=== PATIENT | male | born 1955 | race Caucasian/White ===

== ENCOUNTER 2016-10-19 23:54 | Inpatient (IN) | payer OTHER ==
[~2016-10-19 23:54] MED LIST: IV FLUID CONTINUATION 1,000 ML IV ONE
[2016-10-20] MEDS ORDERED: MIDAZOLAM 2 MG/2 ML VIAL IV ONE (00:05)
[2016-10-20] MEDS ORDERED: MIDAZOLAM 2 MG/2 ML VIAL ONE (00:06)
[2016-10-20] MEDS ORDERED: LIDOCAINE 2% INJ 20 MG/ML SQ ONE (00:08)
[2016-10-20] MEDS ORDERED: METOPROLOL TARTRATE 5 MG/5 ML VIAL IVP ONE ×2 (00:13→00:14)
[2016-10-20] MEDS ORDERED: IOHEXOL 350 MG/ML 100 ML BOTTLE INJ ONE (00:26)
[2016-10-20] MEDS ORDERED: RX INFO: IV CONTRAST WAS GIVEN 1 EACH MISC MISCELLANE PRN (00:40)
[2016-10-20] MEDS ORDERED: NITROGLYCERIN SL TABS 0.4 MG TAB SUBLINGUAL PRN (00:43)
[2016-10-20] MEDS ORDERED: SODIUM CHLORIDE 0.9% 1,000 ML IV SCH (00:45)
[2016-10-20] MEDS ORDERED: LABETALOL SYRINGE 5 MG/ML ONE (00:53)
[2016-10-20] MEDS ORDERED: LABETALOL SYRINGE 5 MG/ML IV ONE (00:56)
--- NOTE | 2016-10-20 00:57 | P.PCN ---
Date of Procedure: 10/20/16 Preoperative Diagnosis: Unstable angina and possible NC Postoperative Diagnosis: Mild coronary artery disease Procedure(s) Performed: Left heart catheterization with left ventriculography Description of Procedure: HISTORY: This is a 60-year-old gentleman with history of heavy smoking and family history of ischemic heart disease who [facility] complaints of chest pain and EKG evidence of ST depression in inferior and anterolateral leads. There is sized to a mild ST elevation in the aVR and V1. Because of ongoing symptoms, patient was advised to have a cardiac catheterization for definitive diagnosis. Patient has history of alcohol intake and also smoking CONSENT:I have discussed the risks, benefits and alternative therapies for the above-mentioned procedure and for both sedation/analgesia as well as necessary blood product administration, if indicated, as they pertain to this patient. The patient has indicated understanding and acceptance of the risks and procedures discussed. PROCEDURE: Patient was brought to the lab in a fasting state. Patient was given some IV sedation. The right groin is infiltrated with lidocaine and right femoral artery was entered using Seldinger technique. A 6-Maltese catheter was left in place and selective coronary arteriography and left ventriculography was performed. Patient tolerated the procedure well. Femoral angiogram was performed. Manual compression was used for hemostasis. No immediate complications were noted and patient was transferred to [facility] in a stable condition HEMODYNAMICS: The aortic pressure is 160/90. Left ankle end-diastolic pressure is 25. There was no gradient across the aortic valve. SELECTIVE CORONARY ARTERIOGRAPHY: LEFT MAIN: Normal length and patent THE LEFT ANTERIOR DESCENDING CORONARY ARTERY: Fair caliber vessel giving rise to good-sized first diagonal branch and a small second diagonal branch. The second diagonal branch has about 30-40% stenosis. THE LEFT CIRCUMFLEX AND IS CORONARY ARTERY: This is a good caliber vessel giving rise to small OM branches and PLV branch. There is mild plaque in the midcircumflex without any significant obstructive disease THE RIGHT CORONARY ARTERY: This is a moderate caliber vessel with about 40-50% stenosis in midportion. The rest of the RCA is free of occlusive disease. It gives rise good-sized PDA and PLV branches and dominant in distribution. LEFT VENTRICULOGRAPHY: This showed normal-sized LV size and function. Left ankle end-diastolic pressure is elevated FINAL IMPRESSION: Mild diffuse coronary artery disease with about 40-50% stenosis in the midright coronary artery. No critical lesions were noted PLAN: Maximum medical therapy. Obtain d-dimer to rule out pulmonary embolism. If the d-dimer is elevated may get computed tomography scan of the chest PROGNOSIS: Fair
[2016-10-20] MEDS ORDERED: ACETAMINOPHEN TAB 325 MG TAB PO PRN (01:03)
[2016-10-20] MEDS ORDERED: ZOLPIDEM 5 MG TAB PO PRN (01:03)
--- NOTE | 2016-10-20 01:03 | P.CRDCN ---
History of Present Illness Consult date: 10/20/16 History of present illness: This is a 60-year-old gentleman with history of smoking and alcohol abuse who went to [facility] today with complaints of prolonged chest discomfort associated with a diffuse ST-T abnormalities in inferior and lateral leads. There is sized to a mild ST elevation in aVR and V1. Because of ongoing chest pains and EKG changes patient was transferred to [facility] for for further evaluation. 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 His cardiac catheterization revealed moderate plaque in mid RCA and mild disease in the diagonal and circumflex. Patient is being admitted to the hospital for further evaluation. Is going to have a d-dimer value. If the d-dimer is high patient may have computed tomography scan of the chest. We'll also follow his cardiac enzymes studies. Patient had no history of previous myocardial infarction. Most of previous chest pains. His breath had alcohol smell on admission. He was watching football game while he started having chest pain. Past Medical History Past Medical History: Hypertension Medications and Allergies Allergies Allergy/AdvReac Type Severity Reaction Status Date / Time No Known Allergies Allergy Verified 10/20/16 00:08 Physical Exam Vitals: Intake and Output 10/19/16 10/19/16 10/20/16 14:59 22:59 06:59 Intake Total 300 Balance 300 Intake: IV 300 Other: Weight 56.961 kg Patient Weight 10/20/16 06:59 Weight 56.961 kg GENERAL EXAM: Patient is alert and oriented and doesn't appear to be in any acute distress HEENT: Normocephalic. Normal reaction of pupils, equal size, normal range of extraocular motion. No erythema or exudates in the throat. NECK: No masses, no nuchal rigidity. CHEST: No chest wall deformity. LUNGS: Equal air entry with no crackles or wheeze. HEART: S1 and S2 normal with no audible mumurs or gallops. Regular rhythm, femorals equal on both sides.. ABDOMEN: No hepatosplenomegaly, normal bowel sounds, no guarding or rigidity. SKIN: No rashes CENTRAL NERVOUS SYSTEM: No focal deficits. EXTREMITIES: No cyanosis, clubbing or edema. Results Current Medications Generic Name Dose Route Start Last Admin Trade Name Freq PRN Reason Stop Dose Admin Acetaminophen/Hydrocodone Bitart 1 each 10/20/16 00:45 [place] 5-325 PO Q6HR PRN Pain Aspirin 81 mg 10/20/16 21:00 Aspirin PO HS JENNIFER Sodium Chloride 1,000 mls @ 50 mls/hr 10/20/16 00:45 Saline 0.9% IV 10/20/16 07:00 .Q20H JENNIFER Lisinopril 5 mg 10/20/16 09:00 Zestril PO DAILY JENNIFER Metoprolol Tartrate 25 mg 10/20/16 09:00 Lopressor PO BID JENNIFER Miscellaneous Information 1 each 10/20/16 00:40 Rx Info: Iv Contrast Was Given MISCELLANE 10/22/16 00:40 DAILY PRN Per Protocol Nicotine 1 patch 10/20/16 09:00 Habitrol 21mg/24hr Patch TRANSDERM DAILY JENNIFER Nitroglycerin 0.4 mg 10/20/16 00:43 Nitrostat SUBLINGUAL Q5M PRN Chest Pain Intake and Output 10/19/16 10/19/16 10/20/16 14:59 22:59 06:59 Intake Total 300 Balance 300 Intake: IV 300 Other: Weight 56.961 kg Patient Weight 10/20/16 06:59 Weight 56.961 kg EKG Interpretations (text) Sinus rhythm with diffuse ST-T abnormalities with ST depression in inferior and lateral leads and mild ST elevation in aVR and V1 Assessment and Plan (1) Unstable angina Status: Acute (2) Hypertension Status: Acute (3) Smoking Status: Acute (4) Family history of ischemic heart disease Status: Acute (5) CAD (coronary artery disease) Status: Acute Plan: Continue to monitor cardiac enzymes. D-dimer. If the d-dimer is elevated make consider doing computed tomography scan. We'll continue with beta blockers, aspirin and lipid-lowering agent along with lisinopril.
[2016-10-20 02:01] VITALS: BMI 20.9
[2016-10-20 02:22] LABS: Creatine Kinase MB 0.9 ng/mL (0.0-2.4); Troponin I 0.014 ng/mL (0.000-0.034)
[2016-10-20] MEDS: NICOTINE 21MG/24HR PATCH TRANSDERM SCH (08:17)
[2016-10-20] MEDS: LISINOPRIL 5 MG TAB PO SCH (08:18)
[2016-10-20] MEDS: METOPROLOL TARTRATE 25 MG TAB PO SCH ×2 (08:18→20:43)
[2016-10-20 08:54] LABS: Anion Gap 10 mmol/L; Blood Urea Nitrogen 14 mg/dL (9-20); Calcium 8.6 mg/dL (8.4-10.2); Carbon Dioxide 26 mmol/L (22-30); Chloride 104 mmol/L (98-107); Cholesterol 141 mg/dL (<200); Glucose 104 mg/dL (74-99); HDL Cholesterol 75 mg/dL (40-60); Non-African American GFR(MDRD) >60 (>60 ml/min/1.73 sqM); Sodium 140 mmol/L (137-145); Triglycerides 110 mg/dL (<150)
[2016-10-20 09:21] LABS: Creatine Kinase MB 0.9 ng/mL (0.0-2.4)
[2016-10-20 09:25] LABS: Troponin I 0.044 ng/mL (0.000-0.034)
--- NOTE | 2016-10-20 12:13 | PN ---
This is a 60-year-old gentleman who is admitted to hospital with chest pain was ruled in for myocardial infarction, had a cardiac catheterization by my associate, Dr. Becker, which revealed mild nonobstructive CAD that he was advised medical therapy for. The patient had an echo done. I am waiting for the results at this time. He had a left ventriculogram that showed normal size and systolic function. A D-dimer was done and that was not elevated. At the time of my evaluation this morning, he is pain free and hemodynamically stable. Denies any symptoms. On exam, comfortable at rest. VITAL SIGNS: Blood pressure is elevated at 150/85, respiratory rate is 18. There is no jugular venous distention. Chest reveals good air entry bilaterally. Heart reveals first and second heart sounds. No gallop. Extremities did not reveal any edema. Peripheral pulses are felt. Groin is free of bleeding, bruit, hematoma. ASSESSMENT: Non-ST segment elevation myocardial infarction, could be due to a plaque rupture. Will follow the echo results and continue with what we are doing. Hopefully home tomorrow.
--- NOTE | 2016-10-20 12:14 | ECHOF ---
Referral Reason:lv function MEASUREMENTS -------- HEIGHT: 165.1 cm WEIGHT: 52.6 kg BP: 160/85 RVIDd: 3.4 cm (< 3.3) IVSd: 1.4 cm (0.6 - 1.1) LVIDd: 3.6 cm (3.9 - 5.3) LVPWd: 1.4 cm (0.6 - 1.1) IVSs: 1.7 cm LVIDs: 2.7 cm LVPWs: 1.4 cm LA Diam: 3.3 cm (2.7 - 3.8) LAESV Index (A-L): 31.86 ml/m Ao Diam: 3.0 cm (2.0 - 3.7) AV Cusp: 2.0 cm (1.5 - 2.6) LA Diam: 3.6 cm (2.7 - 3.8) MV EXCURSION: 14.577 mm (> 18.000) MV EF SLOPE: 103 mm/s (70 - 150) EPSS: 0.2 cm MV E Tre: 0.78 m/s MV DecT: 126 ms MV A Tre: 0.64 m/s MV E/A Ratio: 1.23 RAP: 5.00 mmHg RVSP: 25.45 mmHg FINDINGS -------- Sinus rhythm. This was a technically good study. There is moderate concentric left ventricular hypertrophy. Overall left ventricular systolic function is normal with, an EF between 55 - 60 %. The right ventricle is mildly enlarged. LA is midly dilated 29-33ml/m2. The right atrium is normal in size. Aortic valve is trileaflet and is mildly thickened. The mitral valve leaflets are mildly thickened. Mild mitral annular calcification present. Mild tricuspid regurgitation present. Right ventricular systolic pressure is normal at < 35 mmHg. Pulmonic valve appears structurally normal. The aortic root size is normal. Normal inferior vena cava with normal inspiratory collapse consistent with estimated right atrial pressure of 5 mmHg. There is no pericardial effusion. CONCLUSIONS -------- 1. Sinus rhythm. 2. Mild mitral annular calcification present. 3. Mild tricuspid regurgitation present. 4. Right ventricular systolic pressure is normal at < 35 mmHg. 5. Pulmonic valve appears structurally normal. 6. The aortic root size is normal. 7. There is no pericardial effusion. 8. This was a technically good study. 9. There is moderate concentric left ventricular hypertrophy. 10. Overall left ventricular systolic function is normal with, an EF between 55 - 60 %. 11. The right ventricle is mildly enlarged. 12. LA is midly dilated 29-33ml/m2. 13. The right atrium is normal in size. 14. Aortic valve is trileaflet and is mildly thickened. 15. The mitral valve leaflets are mildly thickened. PROPERTY APPRAISER: Pietro Hopper RDCS
[2016-10-20] MEDS: HYDROcodone/APAP 5-325MG 1 EACH TAB PO PRN (13:56)
--- NOTE | 2016-10-20 20:23 | HP ---
DATE OF ADMISSION: CHIEF COMPLAINT: Chest pain. HISTORY OF PRESENT ILLNESS: Mr. Burton is a 60-year-old male with a known history of hypertension, uncontrolled, alcohol abuse and nicotine addiction; has smoked about one to one and a half packs per day since age 17; and also a family history of coronary artery disease and [place]. His father at age 63. He came to the hospital with complaints of chest pain. Initially he presented to [facility] with sternal chest pain that felt like somebody sitting on his chest; no associated nausea or diaphoresis. Patient does have shortness of breath. Patient was found to have T-wave depression in the lateral and inferior leads and also mild ST elevation in the aVR and V1. Patient was transferred to [facility] for further elevation by Cardiology. Patient was immediately taken for cardiac catheterization that revealed moderate plaque in the mid RCA and mild disease in the diagonal and circumflex. His D-dimer was negative and echo showed normal ejection fraction. Otherwise, patient is hemodynamically and clinically stable without any chest pain now. No fever. No chills. No recent illnesses or sick contacts at home. No recent travel. REVIEW OF SYSTEMS: CONSTITUTIONAL: No fever. No chills. RESPIRATORY: No cough or sputum production. CARDIOVASCULAR: No chest pain or shortness of breath. ABDOMEN: No nausea, vomiting or abdominal pain. GENITOURINARY: Negative. ENDOCRINE: Negative. PSYCHIATRY: Negative. SKIN: Negative. All other 14-point review of systems negative except as above. Past medical history includes hypertension and nicotine addiction. PAST SURGICAL HISTORY: None. FAMILY HISTORY: History of [place] in his father at the age of 63. SOCIAL HISTORY: Patient smokes about one to one and a half packs per day and drinks on a daily basis. Denied any drugs or IVDU. Denied any marijuana. ALLERGIES: NO KNOWN DRUG ALLERGIES. Home medications include: 1. [place] 5/325. 2. Aspirin. 3. Zestril. 4. Habitrol. 5. Nitrostat. 6. Allopurinol. 7. Amlodipine 10 mg p.o. daily. PHYSICAL EXAMINATION: [id number]-old male lying in bed comfortably. Awake, alert, oriented x3. Appears to be in no distress. VITALS: Blood pressure is 150/79. Pulse is 100, respiration 16, temperature afebrile, pulse ox 95% on room air. HEENT: Atraumatic, normocephalic. Neck is supple. No JVD. CVS EXAM: S1, S2 heard. No murmurs or gallop. LUNGS: Bilateral air entry is present. No wheezing. Prolonged expiratory phase. Non-labored breathing. ABDOMEN: Soft, nontender. Bowel sounds are present. 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 No focal deficit. EXTREMITIES: No edema. Pulses palpable bilaterally. No clubbing or cyanosis. PSYCHIATRIC: Cooperative. LABORATORY DATA: Sodium 140, potassium 4.0, chloride 104. Bicarb is 26. BUN 14, creatinine 0.63. Initial troponin was 0.014 and 0.044 and 0.025. LDL is 44. IMPRESSION: 1. Acute [id number] myocardial infarction, status post cardiac catheterization that showed moderate plaque in the mid right coronary artery and mild disease in the diagonal and circumflex; possible plaque rupture is being suspected. 2. Chest pain secondary to above. 3. Uncontrolled hypertension. 4. Nicotine addiction; smokes one to one and a half packs per day. 5. Alcohol abuse. 6. Family history of coronary artery disease with myocardial infarction in his father at age 63. DISCUSSION AND PLAN: Patient will be continued on aspirin, metoprolol, lisinopril. His LDL level is 44 at this time. Will continue the telemetry monitoring. I will titrate the blood pressure medications and follow up closely. Further recommendations based on the clinical course. Anticipate discharge tomorrow with final cardiology recommendations.
[2016-10-20] MEDS ORDERED: ASPIRIN 81 MG CHEW PO SCH (21:00)
[2016-10-21] MEDS: NICOTINE 21MG/24HR PATCH TRANSDERM SCH (09:10)
[2016-10-21] MEDS: LISINOPRIL 5 MG TAB PO SCH (09:10)
[2016-10-21] MEDS: METOPROLOL TARTRATE 25 MG TAB PO SCH (09:10)
[2016-10-21] MEDS: HYDROcodone/APAP 5-325MG 1 EACH TAB PO PRN (09:18)
--- NOTE | 2016-10-21 12:36 | PN ---
A 60-year-old gentleman who is admitted to hospital with chest pain and had mild troponin elevation. Underwent cardiac catheterization with Dr. Becker who thought that this may have been due to vasospasm. Echocardiogram on him to be normal LV systolic function with mildly enlarged right ventricle. D-dimer is normal. The patient had been fine since admission. No other symptoms. On exam, vital signs are stable. Chest exam reveals good air entry bilaterally. Heart exam reveals first and second heart sounds. No gallop. Groin is free of bleeding, bruit, hematoma. Foot pulses are intact. Patient is currently on aspirin, Zestril, Lopressor. ASSESSMENT: Non-ST segment elevation myocardial infarction, status post cath. Advised medical therapy. Patient can go home today. Follow up with Dr. Becker, his primary sign language translator.
[2016-10-21 13:46] VITALS: RESP 18
[2016-10-21 14:01] VITALS: BP 139/83; PULSE 65; TEMP 96.9
--- NOTE | 2016-10-21 18:30 | P.DS ---
Providers Date of admission: 10/20/16 00:00 Attending physician: Rachell Davis Consults: 10/20/16 08:23 Consult Physician Routine Consulting Provider: Shoaib Becker Consult Reason/Comments: STEMI Do you want consulting provider notified?: Yes Primary care physician: Germán Melendez [facility] Course: 60-year-old gentleman is admitted to the hospital with the acute onset chest pain. Patient was noted to have a non-ST segment elevation myocardial infarction. Patient underwent a cardiac catheterization was noted to have some diffuse disease around 45%. The patient's N STEMI was attributed to a dislodged plaque. On the day of discharge patient's symptoms are resolved. Denied having any chest pain, difficulty breathing, nausea, vomiting or diarrhea. Physical exam Physical exam Gen. appearance oriented 3 in no distress Neck is supple no JVD Lungs good air entry clear to auscultation no rhonchi or wheezing Heart S1-S2 heard regular rate and rhythm no murmurs appreciated Abdomen is soft nontender no organomegaly bowel sounds are intact Neurologically cranial nerves II-12 grossly intact no focal motor or sensory deficits noted Skin no abnormalities appreciated Discharge diagnoses #1 non-Q-wave [place] with documented CAD on a cardiac catheterization however did not require any PCi #2 ongoing tobacco use #3 underlying COPD #4 hypertension slightly accelerated #5 dyslipidemia Plan Patient will be discharged on amlodipine and metoprolol. Patient's blood pressure was stable on discharge. Patient will be given a prescription for Chantix for smoking cessation. Patient was recommended to follow up with his primary care physician as soon as possible. Plan - Discharge Summary New Discharge Prescriptions: Metoprolol Tartrate [Lopressor] 25 mg PO BID #60 tab Varenicline Tartrate [Chantix] 1 each PO DAILY #1 tab.ds.pk Discharge Medication List Allopurinol [Zyloprim] 300 mg PO DAILY 10/20/16 [History] HYDROcodone/APAP 7.5-325MG [[place] 7.5-325] 1 tab PO BID 10/20/16 [History] Lisinopril [Zestril] 20 mg PO DAILY 10/20/16 [History] amLODIPine [Norvasc] 10 mg PO DAILY 10/20/16 [History] Metoprolol Tartrate [Lopressor] 25 mg PO BID #60 tab 10/21/16 [Rx] Varenicline Tartrate [Chantix] 1 each PO DAILY #1 tab.ds.pk 10/21/16 [Rx] Follow up Appointment(s)/Referral(s): Santo Dupont MD [STAFF PHYSICIAN] - 10/28/16 3:30 pm Patient Instructions/Handouts: After Heart Catheterization - Proof Clerk, Left Heart Catheterization (DC) Discharge Disposition: HOME SELF-CARE
== END 2016-10-21 15:04 | disposition home or self-care (01) | DRG 282 ==
LOC: 6ICU 10-20 → 6SEL 10-20 00:48
PROVIDERS: ADMIT Internal Medicine; ATTEND Internal Medicine
PROC: 4A023N7 Measurement of Cardiac Sampling and Pressure, Left Heart, Percutaneous Approach (ICD-10-PCS; principal; 2016-10-20)
PROC: B2111ZZ Fluoroscopy of Multiple Coronary Arteries using Low Osmolar Contrast (ICD-10-PCS; 2016-10-20)
PROC: B2151ZZ Fluoroscopy of Left Heart using Low Osmolar Contrast (ICD-10-PCS; 2016-10-20)
DX: I21.4 Non-ST elevation (NSTEMI) myocardial infarction (principal); I11.9 Hypertensive heart disease without heart failure; J44.9 Chronic obstructive pulmonary disease, unspecified; E78.5 Hyperlipidemia, unspecified; F10.10 Alcohol abuse, uncomplicated; F17.210 Nicotine dependence, cigarettes, uncomplicated; I25.110 Atherosclerotic heart disease of native coronary artery with unstable angina pectoris; K76.9 Liver disease, unspecified; Z79.82 Long term (current) use of aspirin; Z79.899 Other long term (current) drug therapy; Z82.49 Family history of ischemic heart disease and other diseases of the circulatory system
CPT/HCPCS: 80048; 80061; 82550; 82553; 84484; 85379; 93306; 93458